=== PATIENT | female | born 1965 | race African-American/Black ===

== ENCOUNTER 2020-09-25 08:06 | Emergency (ER) | payer OTHER ==
[~2020-09-25] VITALS: Ht 170.2 cm; Wt 95.3 kg
[2020-09-25] MEDS ORDERED: GLUMETZA1000 MG (08:23)
[2020-09-25] MEDS ORDERED: TOPROL XL50 M1 (08:24)
[2020-09-25] MEDS ORDERED: ZESTRIL10 M1 PO (08:25)
[2020-09-25] MEDS ORDERED: SIMVASTATIN5 MG (08:26)
[2020-09-25] MEDS ORDERED: ELIQUIS5 MG (08:26)
== END 2020-09-25 12:12 | disposition home or self-care (01) ==
LOC: ER 08:06
DX: B34.9 Viral infection, unspecified (principal); Z11.52 Encounter for screening for COVID-19